=== PATIENT | female | born 1965 | race African-American/Black ===

== ENCOUNTER → 2019-03-15 | Day surgery (SDC) | payer OTHER ==
[~2019-03-15] MED LIST: BACTRIM DS TAB1 EACH PO; BENADRYL25 M1 PO; FENTANYL CITRATE/PF 100MCG/2 ML INJ ONE; GLUCAGON FOR INJ 1 MG VIAL ONE; HYOSCYAMINE 0.125 MG TAB ONE; MIDAZOLAM HCL 2 MG/2 ML VIAL ONE; ONDANSETRON HCL INJ 2MG/ML 2ML 2 MG/ML VIAL ONE; PERCOCET 10-321 EACH PO; PROPOFOL IV EMULSION 10 MG/ML 50 ML VIAL ONE
--- OUTSIDE RECORDS SUMMARY | 2019-03-15 09:13 | XMS REPORT | Summary of Care ---
Author Author [facility] Address Unknown Phone Unavailable Encounter HQ Noellentr_andreina(FIN) [id number] Date(s): 02/09/18 - 03/10/18 [facility] Discharge Disposition: Home or Self Care Attending Physician: Ciara Vasquez MD Vital Signs No data available for this section Problem List Condition Effective Dates Status Health Status Informant Knee Active injury(Confirmed)1 Knee 10/30/13 Resolved pain(Confirmed)2, 3 1left knee 2torn ligament 3left Allergies, Adverse Reactions, Alerts Substance Reaction Severity Status NKDA Active Medications No data available for this section Results No data available for this section Immunizations No data available for this section Procedures Procedure Date Related Diagnosis Body Site Status Arthroscopic knee procedure Completed Bilateral tubal ligation1 Completed Reversal of female sterilization Completed 1x2 Social History Social History Type Response Alcohol Current Smoking Status Cigarette Smoking Last 365 Days No; Reg Smoking Cessation Counseling No; Never smoker; Exposure to Tobacco Smoke None entered on: 05/15/15 Assessment and Plan No data available for this section
--- OUTSIDE RECORDS SUMMARY | 2019-03-15 09:13 | XMS REPORT | Summary of Care ---
Author Author [facility] Address Unknown Phone Unavailable Encounter EVERT Kenney(FIN) [id number] Date(s): 11/25/17 - 12/24/17 [facility] Encounter Diagnosis Aftercare following joint replacement surgery (Final) - 12/31/17 Presence of right artificial knee joint (Final) - Pain in right knee (Final) - Weakness (Final) - Unsteadiness on feet (Final) - Other abnormalities of gait and mobility (Final) - Discharge Disposition: Home or Self Care Attending [...]
--- OUTSIDE RECORDS SUMMARY | 2019-03-15 09:13 | XMS REPORT | Summary of Care ---
Author Author [facility] Organization [facility] Address Unknown Phone Unavailable Encounter HQ Kamlesh_andreina(FIN) [id number] Date(s): 02/08/18 - 02/08/18 [facility] [address] [place] [address]- Discharge Disposition: Home or Self Care Attending Physician: Ciara Vasquez MD Referring Physician: Ciara Vasquez MD Vital Signs No [...]
--- OUTSIDE RECORDS SUMMARY | 2019-03-15 09:13 | XMS REPORT ---
Author Author [facility] Address Unknown Phone Unavailable Care Team Providers Care Turntable Engineer Name Role Phone Unavailable Unavailable Payers Payer Name Policy Type Policy Number Effective Date Expiration Date Problems This patient has no known problems. Allergies, Adverse Reactions, Alerts Allergy Name Allergy Type Status Severity Reaction(s) Onset Date Inactive Date Treating Clinician Comments No Known Allergies DA Active U 2018-11-08 00:00:00 No Known Allergies DA Active U 2018-01-19 00:00:00 Medications This patient has no known medications. Results Test Description Test Time Test Comments Text Results Atomic Results Result Comments - XR TOE(S) 2+V RT 2018-11-08 11:21:00 FAX: Amy Vieyra NP [phone] [place]: St: REG Name: INGRIDFARIBA [facility] : 1965 Age/S: 52/F [address] [place], [place] [address]vd Unit #: [id number] Loc: [place] [address] Phys: Amy Vieyra NP Acct: [id number] Dis Date: Status: REG ER PHONE #: [phone] Exam Date: 11/08/2018 1115 FAX #: [phone] Reason: right pinky toe injury EXAMS: CPT CODE: [id number] XR TOE(S) 2+V [place] [address] PROCEDURE: Right toes 3 views INDICATION: right pinky toe injury COMPARISON: None. FINDINGS: AP, oblique and lateral projections of the right toes were obtained. Acute fracture medial base of the proximal phalanx 5th digit with intra-articular extension. Separation at the articular surface by approximately 1 mm. Alignment and position are otherwise anatomical. No dislocation. No other acute bone or joint abnormality. Moderate degenerative change 1st metatarsophalangeal joint. No discrete erosions. IMPRESSION: Fracture proximal phalanx 5th toe with intra-articular extension. SL: [id number] at 1121 Reported and signed by: Carlos Garcia M.D. CC: Amy Vieyra NP Technologist: RT Ant(Violet) Trnscrd Date/Time/By: 11/08/2018 (1121) : By: [email or web address] Orig Print D/T: S: 11/08/2018 (1121) PAGE 1 Signed Report
--- OUTSIDE RECORDS SUMMARY | 2019-03-15 09:13 | XMS REPORT | Summary of Care ---
Author Author [facility] Address Unknown Phone Unavailable Encounter HQ Octaviar_andreina(FIN) [id number] Date(s): 01/06/18 - 02/04/18 [facility] Discharge Disposition: Home or Self Care Attending [...]
--- OUTSIDE RECORDS SUMMARY | 2019-03-15 09:13 | XMS REPORT | Continuity of Care Document ---
Author Author [facility] Address Unknown Phone Unavailable Problems Problem Status Onset Date Classification Date Reported Comments Source PRESENCE OF RIGHT ARTIFICIAL KNEE JOINT/ Active 08/27/2018 [facility] Z96.651 Active 02/03/2018 [facility] Aftercare following joint replacement surgery 01/01/2018 04/01/2018 [facility] RT KNEE Active 11/13/2017 [facility] RT KNEE PAIN Active 09/17/2017 [facility] KNEE Active 09/17/2017 [facility] S89.91XA Active 12/18/2016 [facility] Knee pain<sup>2, 3</sup> Resolved 10/30/2013 Problem 04/01/2018 left [facility] Knee injury<sup>1</sup> Active Problem 04/01/2018 left knee [facility] Presence of right artificial knee joint 04/01/2018 [facility] Pain in right knee 04/01/2018 [facility] Weakness 04/01/2018 [facility] Unsteadiness on feet 04/01/2018 [facility] Other abnormalities of gait and mobility 04/01/2018 [facility] Medications Medication Details Route Status Patient Instructions Ordering Provider Order Date Source Allergies, Adverse Reactions, Alerts Substance Category Reaction Severity Reaction type Status Date Reported Comments Source Immunizations Immunization Date Given Site Status Last Updated Comments Source Results Order Name Results Value Reference Range Date Interpretation Comments Source Arthrocentesis Intermediate Joint DX Arthrocentesis Intermediate Joint DX Patient Name: FARIBA QUINTERO : 1965; Age: 52 years y/o Female MR: [id number] Study: Arthrocentesis Intermediate Joint DX 09/07/2018 8:27 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 CLINICAL INDICATION: Right knee prosthesis infection. COMPARISON: None. CONSENT: The procedure, risks, benefits and alternatives were discussed and written informed consent was obtained. A "time out" was performed per protocol prior to the procedure. TECHNIQUE: Preoperative diagnosis: Right knee pain. 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 Postoperative diagnosis: Same Estimated blood loss: None. Specimen: 10 mL. Contrast: None Fluoroscopy time: 150 seconds. Dose: 10 mGy. Pain control: 1% lidocaine was administered for local anesthesia. The patient was positioned supine on the fluoroscopy table. Focused fluoroscopic evaluation of the knee demonstrated demonstrated postoperative changes of the right knee. A safe approach into the center of the joint space was determined. The patient's right knee was prepped and draped in usual sterile fashion. 1% lidocaine was injected into the subcutaneous tissues for local anesthesia. Utilizing direct fluoroscopic guidance, a 22-gauge spinal needle was advanced into the right knee joint. 10 mL of fluid was aspirated. Upon completion, the needle was removed. A sterile dressing was applied. The patient tolerated the procedure without immediate complication. The patient was transferred to the postprocedure area for further monitoring. IMPRESSION: Successful fluoroscopic guided right knee joint aspiration. SL: [id number] 09/07/2018 - - Read by: Steven Cheung MD Dictated Date/time: 09/07/18 09:21 Electronically Signed by: Steven Cheung MD 09/07/18 09:26 FINAL REPORT [facility] Bone scan 3 phase NM Bone scan 3 phase NM Correction: In the FINDINGS section the report should read "There is mildly increased perfusion in the right knee with linear blood pool activity surrounding the prosthesis.", not the left knee. The IMPRESSION is correct. This was discussed with Nehemiah Mandujano. TRIPLE PHASE BONE SCAN OF THE KNEES: HISTORY: Post right total knee replacement in August 2017. The patient is having persistent pain post fall 3 days following replacement. TECHNIQUE: 28.6 mCi of technetium 99m MDP were given intravenously followed by perfusion, blood pool and delayed static imaging over the knees. FINDINGS: There is mildly increased perfusion activity in the left knee with linear blood pool activity surrounding the prosthesis. There is increased osseous activity in the osseous structures surrounding the prosthesis. There are no other current imaging studies available for comparison. IMPRESSION: Findings consistent with loosening of the right knee prosthesis. Correlate with other imaging studies. [id number] 02/08/2018 - - Read by: Abelardo Steiner MD Dictated Date/time: 02/11/18 09:23 Electronically Signed by: Abelardo Steiner MD 02/11/18 09:28 FINAL REPORT - - Read by: Abelardo Steiner MD Dictated Date/time: 02/08/18 14:35 Electronically Signed by: Abelardo Steiner MD 02/08/18 14:39 FINAL REPORT [facility] Knee wo contrast MRI Knee wo contrast MRI EXAM: Right knee wo contrast MRI INDICATION: Right Knee. Torn meniscus surgery june 2016 due to a fall. Patient back to work october 2016. New onset pain, weakness, clicking began therafter. Pain is mostly medial, lateral, and anterior. No new injury occured. Partial replacement of left knee. - Tech: Doug Hensley COMPARISON: None. TECHNIQUE: Multiplanar, multisequence magnetic resonance imaging of the right knee was performed without the administration of intravenous gadolinium contrast. FINDINGS: Intercondylar notch: Anterior cruciate ligament and posterior cruciate ligament are intact. Medial compartment: No meniscal tear or chondral defect is seen. Medial collateral ligament is intact. Lateral compartment: Marginal osseous spurring is present. Mild blunting throughout the inner free edge of the lateral meniscus body and posterior horn is seen, compatible with sequela of prior partial meniscectomy. Extensive horizontal tearing throughout the lateral meniscus anterior horn is seen, exiting into the superior articular surface. Subchondral bone marrow edema along the central weightbearing portion of the lateral femoral condyle is seen. Additional subchondral bone marrow edema along the posterior lateral tibial plateau is also noted. High-grade partial to full-thickness cartilage fissuring throughout the posterior lateral tibial plateau as well as posterior weightbearing portion of the lateral femoral condyle is seen. Lateral collateral ligament complex is intact. Posterolateral corner structures are intact. Patellofemoral compartment: Low to moderate grade partial-thickness cartilage fissures along the lateral patellar facet are seen. Low-grade partial-thickness cartilage fissuring along the apex of the trochlea is present. Postoperative changes of prior lateral retinacular release are seen. Please correlate clinically. Extensor mechanism: Quadriceps and patellar tendons are intact. Other findings: Small to moderate-sized joint effusion is seen. There is a moderate to large Ramsey's cyst, showing evidence of leakage. IMPRESSION: 1. Sequela of prior partial meniscectomy of the lateral meniscus body and posterior horn. 2. Extensive horizontal tearing throughout the lateral meniscus anterior horn. 3. Subchondral bone marrow signal abnormality of the central weightbearing portion of the lateral femoral condyle and posterior lateral tibial plateau which may represent stress response or osseous contusions. 4. 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 5. Low to moderate grade chondromalacia of the patellofemoral compartment. 6. Small to moderate-sized joint effusion. 7. 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 SL: NEHAL 2016 - - Read by: Don Gonzalez MD Dictated Date/time: 12/23/16 18:42 Electronically Signed by: Don Gonzalez MD 12/23/16 18:55 FINAL REPORT [facility] Vital Signs Vital Sign Value Date Comments Source Encounters Location Location Details Encounter Type Encounter Number Reason For Visit Attending Provider ADM Date DC Date Status Source [facility] Outpatient [id number] Ciara Teran-Creede 2016 12/24/[address] [facility] [place] [place] OP Therapy Patients [id number] Ciara Teran-Creede 09/23/2017 10/23/2017 [facility] OP Therapy Patients [id number] Ciara Teran-Creede 11/25/2017 12/25/2017 [facility] OP Therapy Patients [id number] Ciara Teran-Creede 01/06/2018 02/05/2018 [facility] Outpatient [id number] Ciara Teran-Creede 02/08/2018 02/09/2018 [facility] OP Therapy Patients [id number] Ciara Teran-Creede 02/09/2018 03/11/2018 [facility] Procedures Procedure Code Date Perfomer Comments Source Arthroscopic knee procedure [id number] [facility] Bilateral tubal ligation<sup>1</sup> 595105434 x2 [facility] Reversal of female sterilization [id number] [facility] Arthroscopic knee procedure [id number] [facility] Bilateral tubal ligation<sup>1</sup> 635183195 x2 [facility] Reversal of female sterilization [id number] [facility] Arthroscopic knee procedure [id number] [facility] Bilateral tubal ligation<sup>1</sup> 967412574 x2 [facility] Reversal of female sterilization [id number] [facility]
--- OUTSIDE RECORDS SUMMARY | 2019-03-15 09:13 | XMS REPORT | Summary of Care ---
Author Author [facility] Organization [facility] Address Unknown Phone Unavailable Encounter HQ Kamlesh_andreina(FIN) [id number] Date(s): 09/23/17 - 10/22/17 [facility] Encounter Diagnosis Presence of right artificial knee joint (Final) - 10/26/17 Pain in right knee (Final) - Weakness [...]
--- OUTSIDE RECORDS SUMMARY | 2019-03-15 09:13 | XMS REPORT | Summary of Care ---
Author Author [facility] Organization [facility] Address Unknown Phone Unavailable Encounter HQ Kamlesh_andreina(FIN) [id number] Date(s): 09/23/17 - 10/22/17 [facility] Encounter Diagnosis Presence of right artificial [...]
--- OUTSIDE RECORDS SUMMARY | 2019-03-15 09:13 | XMS REPORT | Summary of Care ---
Author Author [facility] Organization [facility] Address Unknown Phone Unavailable Encounter HQ Kamlesh_andreina(JALEESA) [id number] Date(s): 12/23/16 - 12/23/16 [facility] [address] [place] [address]- [phone] Discharge Disposition: Home or Self Care Attending [...] Procedures Procedure Date Related Diagnosis Body Site Arthroscopic knee procedure Bilateral tubal ligation1 Reversal of female sterilization 1x2 Social History Social History Type Response Alcohol Current Smoking Status Cigarette Smoking Last 365 Days No; Reg Smoking Cessation Counseling No; Never smoker; Exposure to Tobacco Smoke None Assessment and Plan No data available for this section
[2019-03-15 12:55] VITALS: BP 139/80
--- NOTE | 2019-03-15 19:44 | Operative Report ---
DATE OF PROCEDURE: 03/15/2019 SURGEON: Cezar Briseno MD PROCEDURE: Colonoscopy and polypectomy with biopsies. INDICATION FOR PROCEDURES: Colorectal cancer screening. MEDICATIONS: The patient was done under MAC, please see anesthesiologist's note. PROCEDURE IN DETAIL: With the patient in left lateral decubitus position flexible fiberoptic Olympus colonoscope was inserted into the rectum and advanced all the way to the cecum. There was some retained stools in the colon, but it was lavaged and visualization was fair. The scope was then withdrawn slowly, mucosa overlying the cecum, ascending colon, transverse colon grossly appeared to be within normal limits. The mucosa overlying the left colon revealed some mild inflammatory changes. Multiple random biopsies were obtained. One polyp was snared. One polyp was hot biopsied from the sigmoid colon. The scope was then retroflexed into the distal rectum and small internal hemorrhoids were noted, none of which was actively bleeding. The scope was then straightened out, it was subsequently withdrawn. The patient tolerated the procedure well. IMPRESSION: 1. Mild patchy left-sided colitis. 2. Sigmoid colon polyps x2, one snared, one hot biopsied. 3. Internal hemorrhoids, none actively bleeding. PLAN: Follow up histology. Initiate high-fiber, low-fat diet. Initiate high-fiber supplement. Start VSL#3 one p.o. daily. The patient might benefit from a followup colonoscopy in 3 to 5 years. Cezar Briseno MD [facility]/MOD[facility] /[id number] cc: Abelardo Dugan MD
== END | disposition home or self-care (01) ==
LOC: OR 09:06
PROVIDERS: ATTEND Internal Medicine Gastroenterology
DX: Z12.11 Encounter for screening for malignant neoplasm of colon (principal); D12.5 Benign neoplasm of sigmoid colon; R03.0 Elevated blood-pressure reading, without diagnosis of hypertension; Z68.30 Body mass index [BMI] 30.0-30.9, adult; K51.50 Left sided colitis without complications; K63.5 Polyp of colon; K64.8 Other hemorrhoids; Z01.810 Encounter for preprocedural cardiovascular examination
CPT/HCPCS: 45384; 45385; 81025; 93005; J1610; J2250; J2405; J2704; 45378; 45380; J3010